=== PATIENT | female | born 2000 | race Caucasian/White ===

== ENCOUNTER 2022-04-04 16:23 | Emergency (ER) | payer OTHER, MEDICAID, SELFPAY ==
[2022-04-04 16:32] VITALS: BP 142/82; PULSE 96; RESP 15; TEMP 36.2; O2SAT 99; BMI 40.7
--- NOTE | 2022-04-04 19:47 | ED.NECK ---
HPI - Neck Pain/Injury <STACY Luis - Last Filed: 04/04/22 20:23> General Chief Complaint: Neck Pain/Injury Stated Complaint: neck pain, no known injury Time Seen by Provider: 04/04/22 19:47 Mode of arrival: Ambulatory History of Present Illness HPI Narrative: 21-year-old female, nonsmoker, presents emergency department with right-sided neck pain since this morning. Patient denies any trauma to her head or neck, but believes she slept on it wrong. Patient took a single dose of Tylenol and a hot shower but symptoms did not fully resolve. Related Data Allergies Allergy/AdvReac Type Severity Reaction Status Date / Time No Known Drug Allergies Allergy Verified 04/04/22 16:32 Review of Systems <STACY Luis - Last Filed: 04/04/22 20:23> Review of Systems Narrative: Narrative: GENERAL: Denies chills, fatigue, fever, sweats. See HPI HEENT: Denies sinus pain, ear pain, sore throat, difficulty swallowing, dizziness. RESPIRATORY: Denies dyspnea, cough, wheezing, sputum. CARDIOVASCULAR: Denies chest pain, palpitations, edema. GASTROINTESTINAL: Denies nausea, vomiting, abdominal pain, diarrhea, constipation. : Denies dysuria, frequency, incontinence, hematuria, urinary retention, flank pain. MSK: Denies weakness, joint pain, or bony pain. Endorses neck stiffness. SKIN: Denies rash, skin lesions, or pruritis. NEUROLOGIC: Denies weakness, dizziness, headache, numbness, confusion. PSYCHIATRIC: No concerning psychosocial issues. Patient History <STACY Luis - Last Filed: 04/04/22 20:23> Social History Smoking Status: Unknown if ever smoked Smoking Status: Unknown if ever smoked alcohol intake frequency: holidays/special occasions only Substance Use Type: does not use Exam <STACY Luis - Last Filed: 04/04/22 20:23> Narrative Exam Narrative: Exam Narrative: GENERAL: This is a well-nourished, well-developed patient, in no acute distress HEAD: Atraumatic. Normocephalic. ENT: Nose without bleeding, purulent drainage. Throat without erythema, tonsillar hypertrophy or exudate. Airway patent. Bilateral TMs pearly post. NECK: Trachea midline. No JVD or lymphadenopathy. Nontender. CARDIOVASCULAR: Regular rate and rhythm without murmurs, peripheral pulses intact, cap refill <2 sec. RESPIRATORY: Breath sounds equal and clear bilaterally. No wheezes, rales, or rhonchi. No cough. No increased respiratory effort. No accessory muscle use. GASTROINTESTINAL: Abdomen soft, non-tender, nondistended without guarding or rebound. No suprapubic pain. MSK: Moves all extremities. Neck stiffness with limited range of motion due to pain. Negative Spurling's test. Neurovascularly intact. NEURO: A&O x 3. SKIN: Warm, dry, no rashes or lesions noted. Initial Vital Signs Initial Vital Signs: Vital Signs Temperature 97.2 F L 04/04/22 16:32 Pulse Rate 96 H 04/04/22 16:32 Respiratory Rate 15 04/04/22 16:32 Blood Pressure 142/82 H 04/04/22 16:32 Pulse Oximetry 99 04/04/22 16:32 Oxygen Delivery Method 04/04/22 16:32 Reviewed <Ari Bull MD - Last Filed: 04/04/22 23:09> Initial Vital Signs Initial Vital Signs: Vital Signs Temperature 97.2 F L 04/04/22 16:32 Pulse Rate 96 H 04/04/22 16:32 Respiratory Rate 15 04/04/22 16:32 Blood Pressure 142/82 H 04/04/22 16:32 Pulse Oximetry 99 04/04/22 16:32 Oxygen Delivery Method 04/04/22 16:32 Course <STACY Luis - Last Filed: 04/04/22 20:23> Vital Signs Vital signs: Vital Signs - 8 hr 04/04/22 16:32 Temperature 97.2 F L Pulse Rate 96 H Respiratory Rate 15 Blood Pressure 142/82 H Pulse Oximetry 99 Oxygen Delivery Method Room Air <Ari Bull MD - Last Filed: 04/04/22 23:09> Vital Signs Vital signs: Vital Signs - 8 hr 04/04/22 16:32 Temperature 97.2 F L Pulse Rate 96 H Respiratory Rate 15 Blood Pressure 142/82 H Pulse Oximetry 99 Oxygen Delivery Method Room Air MDM - Neck Pain/Injury <STACY Luis - Last Filed: 08/09/22 20:23> Differential Diagnosis Differential diagnosis: Likely strain of neck muscle MDM Narrative Medical decision making narrative: 21-year-old female that presents to the emergency department with right-sided neck stiffness secondary to sleeping on her neck wrong. Neurovascularly intact. Negative Spurling's test. Will send patient home with recommendations for ibuprofen, warm compresses and gentle range of motion stretching exercises. Discussed plan of care and return precautions with patient, who was agreeable with course of action. Discharge Plan Departure Patient Disposition: Home Clinical Impression: Strain of neck muscle Instructions: DI for Neck Pain Activity Restrictions/Additional Instructions: *You have been diagnosed with a right-sided neck strain. As we discussed, ibuprofen 600 mg 3 times a day with food for the next 3 days. Also, I recommend warm compresses to the affected area along with gentle range of motion stretching exercises. For worsening symptoms that include vision changes, numbness in or tingling of your arms, intolerable pain, difficulty breathing, etc. please return to the emergency room immediately. Otherwise, please follow-up family doctor as needed. *What to do: *Please continue to take your regular medications as directed. [ ] New medication prescriptions sent to your pharmacy: [ ] [ ] New medication written as a paper prescription [ x] No new medications given *Please follow up with your primary care provider in 2-3 days, call for an appointment. Let them know you were seen in the Emergency Department and that we ask that you be seen in follow up. We will electronically transmit a record of today's note if your PCP is in our system *If you do not have a primary care provider please contact the [facility] Resource line at [phone]. They will ask some questions about your medical history and help get you set up with a doctor in the community. ? Return to ER if you should have any new, worsening or concerning symptoms, such as worsening pain, severe headache, confusion, chest pain, difficulty breathing, fever greater than 101 F, shaking chills, persistent vomiting to the point that you cannot drink fluids, or other new or worsening symptoms. Visit Report Forms: Patient Portal/API <Ari Bull MD - Last Filed: 04/04/22 23:09> Cosign ED Attending Ollieature Attestation: I was immediately available in the department for consultation. ?This documentation has been reviewed and I agree with assessment and plan. Supervised by Ari Bull MD
== END 2022-04-04 20:14 | disposition home or self-care (01) ==
PROVIDERS: Emergency Provider Registered Nurse
DX: S16.1XXA Strain of muscle, fascia and tendon at neck level, initial encounter (principal)
CPT/HCPCS: 99281